=== PATIENT | female | born 1955 | race African-American/Black ===

== ENCOUNTER 2017-12-21 11:00 | Outpatient (CLI) | payer MEDICARE | END 2017-12-21 11:01 | disposition home or self-care (01) | LOC: BICRAD 11:00 | PROVIDERS: ATTEND Family Medicine | DX: R05 Cough (principal) | CPT/HCPCS: 71046 ==

== ENCOUNTER 2021-07-22 10:41 | Outpatient (CLI) | payer MEDICARE | END 2021-07-22 10:42 | disposition home or self-care (01) | LOC: BICMAMMO 10:41 | PROVIDERS: ATTEND Family Medicine | DX: Z12.31 Encounter for screening mammogram for malignant neoplasm of breast (principal); Z13.820 Encounter for screening for osteoporosis; Z91.89 Other specified personal risk factors, not elsewhere classified | CPT/HCPCS: 77063; 77067; 77080 ==

== ENCOUNTER 2023-02-22 11:53 | Outpatient (CLI) | payer OTHER | END 2023-02-22 11:54 | disposition home or self-care (01) | LOC: ULT 11:53 | PROVIDERS: ATTEND Family Medicine | DX: M17.0 Bilateral primary osteoarthritis of knee (principal); N95.0 Postmenopausal bleeding; R93.89 Abnormal findings on diagnostic imaging of other specified body structures; N85.2 Hypertrophy of uterus | CPT/HCPCS: 76856 ==

== ENCOUNTER 2025-07-20 08:45 | Outpatient (CLI) | payer MEDICARE | END 2025-07-20 08:46 | disposition home or self-care (01) | LOC: BICMAMMO 08:45 | PROVIDERS: ATTEND Family Medicine | DX: Z13.820 Encounter for screening for osteoporosis (principal); Z78.0 Asymptomatic menopausal state | CPT/HCPCS: 77080 ==